=== PATIENT | female | born 1980 | race Two or more races ===

== ENCOUNTER 2017-06-04 01:41 | Emergency (ER) | payer MEDICAID ==
[~2017-06-04] VITALS: Ht 162.6 cm; Wt 75.5 kg
[~2017-06-04 01:41] MED LIST: PREN1TAB79 PO
[2017-06-04 01:45] VITALS: Ht 162.6 cm; Wt 75.5 kg
[2017-06-04] MEDS ORDERED: CETI10CA PO (04:05)
[2017-06-04] MEDS ORDERED: IBUP-1542 PO (04:05)
[2017-06-04] MEDS ORDERED: GUAI473L22 PO (04:05)
[2017-06-04] MEDS ORDERED: ALBU8.5H3 INH (04:05)
--- NOTE | 2017-06-04 04:30 | ERD ---
ER Documentation Chief Complaint Chief Complaint flu like symptome- cough w/ chest congestion and sob x 2 days, body aches, HPI 36-year-old female presents here to emergency department for complaints of cough shortness of breath and wheezing, chest congestion, body aches that started 2 days ago. Patient has been having dry cough, does not cough up any phlegm or blood. Patient has shortness of breath and wheezing. Patient also has body aches, throbbing pain, 4/10 scale, accompanying the other symptoms. Patient denies any fever or chills. Patient did not take any medications to help with symptoms. Patient denies any sick contacts. ROS All systems reviewed and are negative except as per history of present illness. Medications Home Meds Active Scripts Albuterol Sulfate* (Proair HFA*) 8.5 Gm Hfa.aer.ad, 2 PUFF INH Q4H Y for WHEEZING AND SOB, #1 INHALER Prov:MITCH MAJOR NP 06/04/17 Ibuprofen* (Motrin*) 600 Mg Tab, 600 MG PO Q6H Y for PAIN AND OR ELEVATED TEMP, #30 TAB Prov:MITCH MAJOR NP 06/04/17 Cetirizine Hcl* (Zyrtec*) 10 Mg Capsule, 10 MG PO DAILY, #30 TAB.CHEW Prov:MITCH MAJOR NP 06/04/17 Guaifenesin-Codeine Phosphate* (Guaifenesin* AC Cough Syrup) 473 Ml Liquid, 10 ML PO Q4H Y for COUGH, #120 ML Prov:MITCH MAJOR NP 06/04/17 Reported Medications Vit W-Ca,Fe,FA(<1 mg) ( Vitamins) 1 Each Tablet, 1 EACH PO for 7 Days, TAB 06/02/16 Allergies Allergies: Coded Allergies: No Known Allergy (Unverified , 06/02/16) PMhx/Soc Medical and Surgical Hx: pt denies Medical Hx, pt denies Surgical Hx Hx Alcohol Use: No Hx Substance Use: No Hx Tobacco Use: No Smoking Status: Never smoker FmHx Family History: No coronary disease, No diabetes, No other Physical Exam Vitals Vital Signs Date Time Temp Pulse Resp B/P Pulse Ox O2 Delivery O2 Flow Rate FiO2 06/04/17 01:45 98.9 95 20 143/85 98 Physical Exam GENERAL: The patient is well developed and appropriate for usual state of health, in no apparent distress. HEENT: Atraumatic. Ears: Normal tympanic membrane, no erythema or bulging. No ear canal swelling. No ear discharge. Nose: Erythematous nasal turbinates with clear nasal discharge. Throat: oropharynx clear. No tonsillar swelling or tonsillar exudates. No lymphadenopathy. CHEST: Clear to auscultation bilaterally. There are no rales, wheezes or rhonchi. HEART: Regular rate and rhythm. No murmurs, clicks, rubs or gallops. No S3 or S4. ABDOMEN: Soft, nontender and nondistended. Good bowel sounds. No rebound or guarding. No gross peritonitis. No gross organomegaly or masses. No Ndiaye sign or McBurney point tenderness. BACK: No midline or flank tenderness. EXTREMITIES: Equal pulses bilaterally. There is no peripheral clubbing, cyanosis or edema. No focal swelling or erythema. Full range of motion. Grossly neurovascularly intact. NEURO: Alert and oriented. Cranial nerves 2-12 intact. Motor strength in all 4 extremities with 5/5 strength. Sensation grossly intact. Normal speech and gait. SKIN: There is no apparent rash or petechia. The skin is warm and dry. HEMATOLOGIC AND LYMPHATIC: There is no evidence of excessive bruising or lymphedema. No gross cervical, axillary, or inguinal lymphadenopathy. Procedures/MDM Medical Decision Making: Patient symptoms are most likely consistent with acute bronchitis, which viral in origin. There is low suspicion for Pneumonia at this time since patients lungs sounds are clear, patient O2 saturation is normal and patient doesnt show any respiratory distress. Radiology exams not indicated at this time. There is low suspicion for other cardiopulmonary emergencies at this time such as CHF, Pulmonary Embolism, Pneumothorax, or any other cardiopulmonary emergencies at this time. There is low suspicion for sepsis. Patient appears well and is hemodynamically stable. Fever is controlled with medicines. Disposition: Home. Condition: Stable Prescriptions: Albuterol ibuprofen Zyrtec guaifenesin with codeine Instructions: Patient is advised to take medications as prescribed. Patient is advised to rest. Patient advised to increase fluid intake, do humidifier at home and if possible, do salt water gargles. Patient is advised that if symptoms are worse, shortness of breath, uncontrolled fever, stridor, vomiting, worst signs and symptoms to return to emergency department immediately. Otherwise, patient is advised to follow up with primary doctor in 5-7 days. Disclaimer: Inadvertent spelling and grammatical errors are likely due to EHR/ dictation software use and do not reflect on the overall quality of patient care. Also, please note that the electronic time recorded on this note does not necessarily reflect the actual time of the patient encounter. Departure Diagnosis: Primary Impression: Acute bronchitis Bronchitis organism: unspecified organism Qualified Code: J20.9 - Acute bronchitis, unspecified organism Condition: Stable Patient Instructions: Bronchitis With Wheezing (Adult) MITCH MAJOR NP Jun 04, 2017 04:30
== END 2017-06-04 05:16 | disposition home or self-care (01) ==
LOC: FTE 04:08
DX: J20.9 Acute bronchitis, unspecified (principal)
CPT/HCPCS: 99283

== ENCOUNTER 2017-07-22 02:22 | Emergency (ER) | END 2017-07-22 04:45 | disposition left against medical advice (07) ==

== ENCOUNTER 2018-12-16 16:50 | Emergency (ER) | payer MEDICAID ==
[~2018-12-16] VITALS: Ht 149.9 cm; Wt 78.3 kg
[~2018-12-16 16:50] MED LIST changes: +ALBU8.5H8 INH; +CEPH-443 PO; +CETI10CA PO; +GUAI473L22 PO; +IBUP-1542 PO
[2018-12-16 16:51] VITALS: BP 153/87; PULSE 82; RESP 16; Ht 149.9 cm; Wt 78.3 kg
[2018-12-16] MEDS ORDERED: CALAMINE TOP (17:14)
[2018-12-16] MEDS ORDERED: BEN25 PO (17:14)
--- NOTE | 2018-12-16 17:19 | ERD ---
ER Documentation Chief Complaint Chief Complaint generalized itching x3 months, unknown allergy. no rash HPI Patient is a 38-year-old female, PMHX of nephrolithiasis, presents the ER for co ncerns of generalized body itching for the last 7 years. Patient states her itching has become worse for the last 3 months. Patient has no rashes. Patient states she is tried changing her soaps, lotions and products with minimal alleviation of symptoms. Patient denies any lip swelling, tongue swelling, difficulty breathing, chest tightness or LOC. No recent travel. No sick co ntacts. Patient denies any fevers or chills. ROS All systems reviewed and are negative except as per history of present illness. Medications Home Meds Active Scripts Diphenhydramine Hcl* (Benadryl*) 25 Mg Cap, 25 MG PO Q6, #30 CAP Prov:CHRIST GAYLE PA-C 12/16/18 Calamine* (Calamine*) 120 Ml Lotion, 1 APPLIC TOP Q4H for RASH, #1 EA Prov:CHRIST GAYLE PA-C 12/16/18 Cephalexin* (Keflex*) 500 Mg Capsule, 500 MG PO BID for 7 Days, CAP Prov:SUZANNE ELIZONDO MD 07/22/17 Albuterol Sulfate* (Proair HFA*) 8.5 Gm Hfa.aer.ad, 2 PUFF INH Q4H PRN for WHEEZING AND SOB, #1 INHALER Prov:MITCH MAJOR NP 06/04/17 Ibuprofen* (Motrin*) 600 Mg Tab, 600 MG PO Q6H PRN for PAIN AND OR ELEVATED TEMP, #30 TAB Prov:MITCH MAJOR NP 06/04/17 Cetirizine Hcl* (Zyrtec*) 10 Mg Capsule, 10 MG PO DAILY, #30 TAB.CHEW Prov:MITCH MAJOR NP 06/04/17 Guaifenesin-Codeine Phosphate* (Guaifenesin* AC Cough Syrup) 473 Ml Liquid, 10 ML PO Q4H PRN for COUGH, #120 ML Prov:MITCH MAJOR NP 06/04/17 Reported Medications Vit W-Ca,Fe,FA(<1 mg) ( Vitamins) 1 Each Tablet, 1 EACH PO for 7 Days, TAB 06/02/16 Allergies Allergies: Coded Allergies: No Known Allergy (Unverified , 06/02/16) PMhx/Soc History of Surgery: No Hx Neurological Disorder: No Hx Respiratory Disorders: No Hx Cardiac Disorders: No Hx Psychiatric Problems: No Hx Miscellaneous Medical Probl: No Hx Alcohol Use: No Hx Substance Use: No Hx Tobacco Use: No FmHx Family History: No diabetes Physical Exam Vitals Vital Signs Date Temp Pulse Resp B/P (MAP) Pulse Ox O2 O2 Flow FiO2 Time Delivery Rate 12/16/18 97.5 82 16 153/87 98 16:51 (109) Physical Exam GENERAL: Well-developed, well-nourished female. Appears in no acute distress. Speaking in full sentences. HEAD: Normocephalic, atraumatic. EYES: Pupils are equally reactive bilaterally. EOMs grossly intact. No conjunctival erythema. ENT: Moist mucous membranes. No uvula deviation. No kissing tonsils. No lip swelling. No tongue swelling. Oropharynx is open patient is tolerating secretions well. NECK: Supple. No meningismus. Normal range of motion of the neck. LUNG: Clear to auscultation bilaterally. No rhonchi, wheezing, rales or coarse breath sounds. HEART: Regular rate and rhythm. No murmurs, rubs or gallops. EXTREMITIES: Equal pulses bilaterally. No peripheral clubbing, cyanosis or edema. No unilateral leg swelling. NEUROLOGIC: Alert and oriented. Moving all four extremities without any difficulty. Normal speech. Steady gait. SKIN: Normal color. Warm and dry. No rashes or lesions. Procedures/MDM MEDICAL DECISION MAKING: Patient is a 38-year-old female, who presents the ER for concerns of generalized body itching for the last 7 years, worse over the last 3 months. Patient has no rashes. Patient has no lip swelling, tongue swelling difficulty breathing, chest tightness. Vital signs were reviewed. Patient is afebrile. Patient was not hypoxic. Patient was hemodynamically stable. On exam, patient did not have any rashes. Patient was advised she should follow-up with a calculus tutor versus skin toggler for allergy skin testing. Referral information provided. Low suspicion for acute allergic reaction, anaphylaxis, scabies, insect bites, fungal infection. Patient was nontoxic, [id number] prior to discharge. PRESCRIPTIONS: Calamine, Benadryl DISCHARGE: At this time, patient is stable for discharge and outpatient management. I have instructed the patient to follow-up with his/her primary care physician in 1-2 days. I have discussed with the patient the possibility of needing to see a specialist for further workup and imaging studies if symptoms persist. I have instructed the patient to promptly return to the ER for any new or worsening symptoms including increased pain, fever, nausea, vomiting, weakness or LOC. The patient and/or family expressed understanding of and agreement with this plan. All questions were answered. Home care instructions were provided. Disclaimer: Inadvertent spelling and grammatical errors are likely due to EHR/dictation software use and do not reflect on the overall quality of patient care. Also, please note that the electronic time recorded on this note does not necessarily reflect the actual time of the patient encounter. Departure Diagnosis: Primary Impression: Chronic pruritus Condition: Fair Patient Instructions: First Aid: Allergic Reactions Referrals: ODILON DELGADO MD,SAPPHIRE RICHTER,MAGGIE BELL,DILIP FARR,SHERLYN WALLS,JULES MCCABE [facility] YOU HAVE RECEIVED A MEDICAL SCREENING EXAM AND THE RESULTS INDICATE THAT YOU DO NOT HAVE A CONDITION THAT REQUIRES URGENT TREATMENT IN THE EMERGENCY DEPARTMENT. FURTHER EVALUATION AND TREATMENT OF YOUR CONDITION CAN WAIT UNTIL YOU ARE SEEN IN YOUR DOCTORS OFFICE WITHIN THE NEXT 1-2 DAYS. IT IS YOUR RESPONSIBILITY TO MAKE AN APPOINTMENT FOR FOLOW-UP CARE. IF YOU HAVE A PRIMARY DOCTOR --you should call your primary doctor and schedule an appointment IF YOU DO NOT HAVE A PRIMARY DOCTOR YOU CAN CALL OUR PHYSICIAN REFERRAL HOTLINE AT IF YOU CAN NOT AFFORD TO SEE A PHYSICIAN YOU CAN CHOSE FROM THE FOLLOWING [facility] CLINICS [facility] [address] [facility] [address] [facility] [facility] [address] [facility]. [facility] [address] [facility]. [facility] [address] [facility]. [facility]. [address] [facility]. [facility] YOU HAVE RECEIVED A MEDICAL SCREENING EXAM AND THE RESULTS INDICATE THAT YOU DO NOT HAVE A CONDITION THAT REQUIRES URGENT TREATMENT IN THE EMERGENCY DEPARTMENT. FURTHER EVALUATION AND TREATMENT OF YOUR CONDITION CAN WAIT UNTIL YOU ARE SEEN IN YOUR DOCTORS OFFICE WITHIN THE NEXT 1-2 DAYS. IT IS YOUR RESPONSIBILITY TO MAKE AN APPOINTMENT FOR FOLOW-UP CARE. IF YOU HAVE A PRIMARY DOCTOR --you should call your primary doctor and schedule and appointment IF YOU DO NOT HAVE A PRIMARY DOCTOR YOU CAN CALL OUR PHYSICIAN REFERRAL HOTLINE AT . IF YOU CAN NOT AFFORD TO SEE A PHYSICIAN YOU CAN CHOSE FROM THE FOLLOWING [facility] INSTITUTIONS: [facility] [address] [place] [address] [facility] [address] [place] [address] [facility] [address] [place] [address] Additional Instructions: Llame al doctor MAANA y jocelyne madison MARCELL PARA DENTRO DE 1-2 AL.Dgale a la secretaria que nosotros le instruimos hacer esta marcell.Avise o llame si park condicin se empeora antes de la marcell. Regresa aqui si peor o no mejor. CHRIST GAYLE PA-C Dec 16, 2018 17:19
== END 2018-12-16 17:20 | disposition home or self-care (01) ==
LOC: FTE 16:50
DX: L29.8 Other pruritus (principal)
CPT/HCPCS: 99282